=== PATIENT | female | born 1970 | race Caucasian/White ===

== ENCOUNTER → 2016-08-07 | Outpatient (CLI) | payer BC ==
[~2016-08-07] MED LIST: GLC/500 PO; INSDGI SC; LEVO50TA6 PO; LIRA18IN SC; NVLGI/PEN SC; ZCR5 PO; ZOLP5TAB PO
--- NOTE | 2016-08-07 16:40 | MAMMOGRAPHY REPORT ---
BILATERAL DIGITAL SCREENING MAMMOGRAM TOMOSYNTHESIS WITH CAD: 08/07/2016 CLINICAL HISTORY: Routine screening. Patient has no complaints. TECHNIQUE: Breast tomosynthesis in addition to standard 2D mammography was performed. Current study was also evaluated with a Computer Aided Detection (CAD) system. COMPARISON: Comparison is made to exams dated: 08/07/2015 mammogram, 08/04/2014 mammogram, 08/03/2013 mammogram, 07/08/2012 mammogram, 06/14/2011 mammogram, and 06/06/2010 mammogram - [facility]. BREAST COMPOSITION: The tissue of both breasts is heterogeneously dense, which may obscure small ma sses. FINDINGS: No suspicious masses, calcifications, or areas of architectural distortion are noted in e ither breast. There has been no significant interval change compared to prior exams. Bilateral asym metries are stable, including a nodular 5 mm asymmetry seen within the right medial posterior breast on the cc view which is stable compared to prior exams including the 2012 exam. IMPRESSION: ACR BI-RADS CATEGORY 2: BENIGN There is no mammographic evidence of malignancy. A 1 year screening mammogram is recommended. The p atient will receive written notification of the results. Approximately 10% of breast cancers are not detected with mammography. A negative mammographic repor t should not delay biopsy if a clinically suggestive mass is present. Lashaun Acharya M.D. /:08/07/2016 15:50:42 Pharmaceutical Sales Representative: Tana AVELAR)(M), [facility] letter sent: Normal 1/2 BI-RADS Code: ACR BI-RADS Category 2: Benign
== END | disposition home or self-care (01) ==
LOC: C.MAMM 11:20
PROVIDERS: ATTEND Internal Medicine
DX: Z12.31 Encounter for screening mammogram for malignant neoplasm of breast (principal)

== ENCOUNTER 2016-10-19 07:26 | Emergency (ER) | payer BC ==
[~2016-10-19] VITALS: Ht 165.1 cm; Wt 78.0 kg
[~2016-10-19 07:26] MED LIST changes: -INSDGI SC; -LEVO50TA6 PO; -LIRA18IN SC; -NVLGI/PEN SC
[2016-10-19 07:37] VITALS: TEMP 36.6; Ht 165.1 cm; Wt 78.0 kg
[2016-10-19] MEDS ORDERED: NVLGI/PEN SC (08:02)
[2016-10-19] MEDS ORDERED: LEVO50TA6 PO (08:02)
[2016-10-19] MEDS ORDERED: LIRA18IN SC (08:02)
[2016-10-19] MEDS ORDERED: INSDGI SC (08:02)
--- NOTE | 2016-10-19 08:20 | DIAGNOSTIC IMAGING REPORT ---
RIGHT KNEE 3 VIEWS CLINICAL HISTORY: Medial right knee pain. COMPARISON: Right knee radiographs March 29, 2016. FINDINGS: Alignment of the right knee is anatomic. There is no fracture or suspicious lesion. No joint effusion is identified. Joint spaces are preserved. IMPRESSION: No abnormality of the right knee. Electronically signed by: James Mccormick M.D. 10/19/2016 8:19 AM Dictated Date/Time: 10/19/2016 8:17 AM
[2016-10-19 09:05] VITALS: BP 109/68; PULSE 69; O2SAT 98
--- NOTE | 2016-10-19 18:19 | EMERGENCY ROOM VISIT NOTE ---
ED Visit Note First contact with patient: 07:36 CHIEF COMPLAINT: Right Knee injury HISTORY OF PRESENT ILLNESS: This 46-year-old white female patient injured her right knee yesterday when she slipped on a carpeted stair case. The left leg went forward. The right knee was hyperflexed and tucked behind her. She felt a lot of stretching and knee. She was able to go to work but states was very painful. She was limping. Pain continues today. She is having difficulty with mobility. She points to the medial aspect of her knee as the area of worst discomfort. No snaps or pops that she is aware of. No numbness or tingling. She states her foot was hyper plantar flexed as well but she feels it is minor compared to the knee. She does note some mild swelling in the lower leg and foot. Treatment consisted of ice and elevation. REVIEW OF SYSTEMS: No weakness or numbness of the leg, no previous serious injuries or surgery to this knee. Positive diabetes. PMH: Significant for diabetes. Family history: Noncontributory. Allergies: NKDA Current medications: Filed in patient's chart SOCIAL HISTORY: Patient lives at home. Employed. No tobacco use. PHYSICAL EXAM: Vital Signs: Reviewed Nurse's notes. Afebrile. MENTAL STATUS: Alert, oriented, and cooperative. Sitting in a wheelchair. Musculoskeletal: The right knee is tender to palpation over the MCL and medial joint line. No pain with palpation over the lateral joint line or LCL. No pain with palpation over her quadriceps, calf, or pes bursa. No defect in the patellar tendon or quadriceps tendon. She is able to flex to over 90. She has full terminal extension.. There is no joint effusion. There is no ligamentous instability. The skin is normal and intact. The patient walks with an antalgic gait. Neurologic: Gross sensation is intact across the right leg by soft touch. Peripheral pulses are 2+. EMERGENCY DEPARTMENT COURSE: X-ray does not show any fractures or fluid in the joint. This was read by radiology. DIAGNOSIS: Right knee medial pain DISCHARGE INSTRUCTIONS: Patient was educated regarding today's findings. Conservative care measures were discussed. X-ray was obtained and was read by radiology as unremarkable. Start Ibuprofen, 600 mg every 6 hours if needed for pain. Supplement with Tylenol every 6 hours as needed. Crutches were given and crutch instruction was reviewed. Weight-bear as tolerated. She may obtain an OTC knee sleeve or brace if desired. Ice and elevation to the knee frequently for the next 72 hours. Stay off the leg as much as possible. Return to the ED for any acute changes or worsening of symptoms. Follow-up with Dr. Self for reexamination and possible MRI if symptoms do not improve. Possibility of meniscal injury was discussed. Current/Historical Medications Scheduled Insulin Aspart (Novolog Flexpen), 4 UNITS SC AC Insulin Glargine (Lantus), 13 UNITS SC HS Levothyroxine Sodium (Levothyroxine Sodium), Unknown Dose PO DAILY Liraglutide (Victoza), Unknown Dose SC DAILY Metformin Hcl (Glucophage), 1,000 MG PO HS Simvastatin (Simvastatin), 5 MG PO DAILY Zolpidem Tartrate (Ambien), 5 MG PO HS Allergies Coded Allergies: POLLEN (Verified Allergy, Intermediate, ITCHY EYES, SNEEZING, RUNNY NOSE, CONGESTION, 10/19/16) Vital Signs Date Time Temp Pulse Resp B/P (MAP) Pulse Ox O2 Delivery O2 Flow Rate FiO2 10/19/16 09:05 69 18 109/68 98 10/19/16 07:37 36.6 75 18 101/72 95 Room Air Departure Information Referrals Pro,Mirza Clemens M.D. (PCP) Patient Instructions [facility]
== END 2016-10-19 09:06 | disposition home or self-care (01) ==
LOC: C.EDB 07:28 → C.EDA 09:06
DX: S89.91XA Unspecified injury of right lower leg, initial encounter (principal); W01.0XXA Fall on same level from slipping, tripping and stumbling without subsequent striking against object, initial encounter; E11.9 Type 2 diabetes mellitus without complications; Z79.4 Long term (current) use of insulin; Z79.899 Other long term (current) drug therapy

== ENCOUNTER → 2016-10-21 | Outpatient (CLI) | payer BC ==
[~2016-10-21] MED LIST changes: +INSDGI SC; +LEVO50TA6 PO; +LIRA18IN SC; +NVLGI/PEN SC
== END | disposition home or self-care (01) ==
LOC: C.RDSM 14:19
PROVIDERS: ATTEND Physician Assistant
DX: M79.671 Pain in right foot (principal)

== ENCOUNTER → 2017-09-03 | Outpatient (CLI) | payer OTHER ==
[~2017-09-03] MED LIST changes: -INSDGI SC; +INSU100I23 SC; -LEVO50TA6 PO; +LEVO88TA3 PO; -LIRA18IN SC; -ZOLP5TAB PO
--- NOTE | 2017-09-04 15:34 | MAMMOGRAPHY REPORT ---
BILATERAL DIGITAL SCREENING MAMMOGRAM TOMOSYNTHESIS WITH CAD: 09/03/2017 CLINICAL HISTORY: Routine screening. Patient has no complaints. TECHNIQUE: Breast tomosynthesis in addition to standard 2D mammography was performed. Current study was also evaluated with a Computer Aided Detection (CAD) system. COMPARISON: Comparison is made to exams dated: 08/07/2016 mammogram, 08/07/2015 mammogram, 08/24/2014 ul trasound, 08/24/2014 mammogram, 08/04/2014 mammogram, and 08/12/2013 ultrasound - [facility] enter. BREAST COMPOSITION: The tissue of both breasts is heterogeneously dense, which may obscure small mas ses. FINDINGS: No suspicious masses, calcifications, or areas of architectural distortion are noted in ei ther breast. There has been no significant interval change compared to prior exams. Bilateral asymme tries are stable. IMPRESSION: ACR BI-RADS CATEGORY 2: BENIGN There is no mammographic evidence of malignancy. A 1 year screening mammogram is recommended. The pa tient will receive written notification of the results. Approximately 10% of breast cancers are not detected with mammography. A negative mammographic report should not delay biopsy if a clinically suggestive mass is present. Lashaun Acharya M.D. /:09/03/2017 15:42:23 Charcoal Kiln Burner: Yina AVELAR)(Samra), [facility] letter sent: Normal 1/2 BI-RADS Code: ACR BI-RADS Category 2: Benign
== END | disposition home or self-care (01) ==
LOC: C.MAMM 15:17
PROVIDERS: ATTEND Internal Medicine
DX: Z12.31 Encounter for screening mammogram for malignant neoplasm of breast (principal)